=== PATIENT | female | born 1990 | race Caucasian/White ===

== ENCOUNTER 2017-10-27 14:46 | Inpatient (IN) | payer OTHER ==
[2017-10-27] MEDS ORDERED: SODIUM CHLORIDE FLUSH 0.9% 10 ML SYRINGE IVP PRN ×2 (15:08→20:27)
[2017-10-27] MEDS ORDERED: ONDANSETRON 4 MG/2 ML VIAL IVP PRN ×2 (15:08→23:00)
[2017-10-27] MEDS ORDERED: fentaNYL 100 MCG/2 ML VIAL IVP PRN (15:08)
[2017-10-27] MEDS ORDERED: LACTATED RINGERS 1,000 ML IV ONE ×5 (15:18→18:57)
[2017-10-27] MEDS: LACTATED RINGERS 1,000 ML IV SCH ×3 (15:30→23:33)
[2017-10-27 15:40] LABS: BASOPHILS # (AUTO) 0.1 10^3/uL (0.0-0.1); BASOPHILS % (AUTO) 0.7 %; EOSINOPHILS # (AUTO) 0.1 10^3/uL (0.0-0.7); EOSINOPHILS % (AUTO) 0.5 %; HGB - HEMOGLOBIN 11.5 g/dL (12.0-16.0); LYMPHOCYTES % (AUTO) 20.6 %; MEAN CORPUSCULAR HEMOGLOBIN 28.4 pg (27.0-31.0); MEAN CORPUSCULAR HGB CONC 33.8 g/dL (32.0-36.0); MEAN CORPUSCULAR VOLUME 84.1 fL (81.0-99.0); MEAN PLATELET VOLUME 8.1 fL (7.9-10.8); MONOCYTES # (AUTO) 0.7 10^3/uL (0.0-1.0); MONOCYTES % (AUTO) 7.3 %; NEUTROPHILS # (AUTO) 6.9 10^3/uL (1.5-6.6); NEUTROPHILS % (AUTO) 70.9 %; PLT - PLATELET COUNT 296 10^3/uL (130-450); RED BLOOD COUNT 4.04 10^6/uL (4.20-5.40); RED CELL DISTRIBUTION WIDTH 14.3 % (12.0-15.0); WHITE BLOOD COUNT 9.7 x10^3/uL (4.8-10.8)
--- NOTE | 2017-10-27 17:19 | HISTORY & PHYSICAL EXAMINATION ---
DATE OF SERVICE: 10/27/2017 Physician: Jacob Regalado MD DATE OF ADMISSION: 10/27/2017 DIAGNOSIS 1. A 37-week gestation, in labor. 2. Ruptured membranes. 3. Breech presentation confirmed on ultrasound. HISTORY OF PRESENT ILLNESS: Mrs. Yina Vallejo is a 28-year-old , 2, para 1-0-0-1 woman at 37 weeks based on LMP confirmed by ultrasound. She was a known breech presentation and version attempt was planned for this Friday. At roughly 1:30 this afternoon, she experienced a gush of clear fluid and was told to report to [facility]. Upon presentation, she was found to be in the latent phase of labor with ruptured membranes. Cervical exam was 1-2 cm, 50% effaced, -1 station and a posterior presentation. [employer] RECORDS REVIEW: Last menstrual period was 08 February. Early ultrasound dating was consistent. Other than seasonal rhinitis and heartburn, there were no major problems encountered in the . Final EDC was set at 22 October. The patient was taking thyroxine 25 mcg daily for known hypothyroidism. PAST OBSTETRICAL HISTORY: Vaginal delivery of a 9 pound 5 ounce male without difficulty. PAST SURGICAL HISTORY: None. ALLERGIES: NONE. MEDICATIONS 1. vitamins and iron. 2. Levothyroxine. 3. Ranitidine. FAMILY HISTORY: Prior child has autism. SOCIAL HISTORY: A [employer] dependent. Safe household, , some college. A never smoker, drugs or alcohol. PHYSICAL EXAMINATION GENERAL: Well groomed, calm, present. VITAL SIGNS: 113/63, pulse 108, temperature 98.1. HEENT: Supple neck. Dentition in good repair. No thyromegaly. Wears glasses. LUNGS: Clear to auscultation. CARDIOVASCULAR: Regular. No murmur. No gallop. ABDOMEN: No epigastric tenderness. UTERUS: Size is consistent, estimate a 7-1/2 to 8 pound fetus. Contractions periodically moderate. EFM tracing, category 1. EXTERNAL GENITALIA: No lesions. VAGINA: Copious clear, nonfoul fluid. Nitrazine positive. CERVIX: 1-2 cm posterior, 50% effaced, -1 station leaking fluid. EXTREMITIES: Nonedematous. NEUROLOGIC: Grossly intact. LABORATORY: Admission labs pending. ASSESSMENT: This is a term in the latent phase of labor with a known breech presentation. Ultrasound was re-accomplished and confirmed breech with adequate fluid. Given ruptured membranes, she is not a candidate for a version at this time. Last meal was consumed at roughly 1:30, a hot dog. Anticipate regional anesthetic, spinal. The patient has some fears surrounding anesthetic efficiency and pain. PLAN 1. Consent for primary lower segment transverse section due to breech presentation. 2. Antibiotic prophylaxis per protocol. 3. Compression boots. 4. Ybarra catheter. TD: 10/27/2017 18:18 [facility]
[2017-10-27] MEDS ORDERED: KETOROLAC 30 MG/ML VIAL IVP ONE (18:45)
[2017-10-27] MEDS ORDERED: MORPHINE PF 5 MG/10 ML AMP EP ONE (18:45)
[2017-10-27] MEDS ORDERED: OXYTOCIN 10 UNIT/ML VIAL IV ONE (18:45)
[2017-10-27] MEDS ORDERED: ONDANSETRON 4 MG/2 ML VIAL IVP ONE (18:45)
[2017-10-27] MEDS ORDERED: MORPHINE 2 MG/ML CARPUJECT ONE (19:56)
[2017-10-27] MEDS ORDERED: MAGNESIUM HYDROXIDE 2,400 MG/30 ML UDC PO PRN (20:27)
[2017-10-27] MEDS ORDERED: diphenhydrAMINE 25 MG CAPSULE PO PRN (20:27)
[2017-10-27] MEDS ORDERED: WITCH HAZEL/GLYCERIN 1 EACH MED..PAD TOP PRN (20:27)
[2017-10-27] MEDS ORDERED: HYDROCORTISONE/PRAMOXINE 10 GM PR PRN (20:27)
--- NOTE | 2017-10-27 20:35 | OPERATIVE REPORT ---
Operative Report - General Admit Date: 10/27/17 Procedure Date: 10/27/17 Pre-Op Diagnosis: Breech presentation in labor Procedure Performed: Primary lower segment transverse section Post Op Diagnosis: Same as above - Procedure Note Primary Surgeon: Jacob Regalado MD Secondary Surgeon: Angel Faulkner Anesthesia Technique: Spinal Pathology: None IV Fluids (mL): 1,400 Estimated Blood Loss (mL): 500 Urine Output (mL): 250 Complications: None
[2017-10-27] MEDS: oxyCOD/ACETAMIN 5 MG/325 MG TABLET PO PRN (21:26)
[2017-10-27] MEDS: ACETAMINOPHEN 500 MG TABLET PO SCH (21:26)
[2017-10-27] MEDS: DOCUSATE SODIUM 100 MG CAPSULE PO SCH (21:26)
[2017-10-27] MEDS: IBUPROFEN 600 MG TABLET PO SCH (21:27)
--- NOTE | 2017-10-27 21:47 | OPERATIVE REPORT ---
DATE OF SERVICE: 10/27/2017 Physician: Jacob Regalado MD PREOPERATIVE DIAGNOSES: 1. A 37-week gestation. 2. Breech presentation in labor. 3. Ruptured membranes. PROCEDURE PERFORMED: Primary lower segment transverse section; delivery of a living female infant. POSTOPERATIVE DIAGNOSES: 1. LGA . 2. A 37-week gestation. 3. Breech presentation in labor. 4. Ruptured membranes. PRIMARY SURGEON: Jacob Regalado MD, FACOG, FICS FAITH HEALER: Angel Fualkner, certified nurse copy holder, Women's Health nurse practitioner. ESTIMATED BLOOD LOSS: 500. COMPLICATIONS: None. ANESTHESIOLOGIST: Magnolia Gonzalez, certified nurse fiberglass finisher; spinal. ANALYSIS INTERNSHIP: Zhao To MD (bed spring maker). IV FLUIDS: 1400. URINE OUTPUT: 250. FINDINGS: A living female fetus was born from a double footling breech presentation, right sacrum transverse. The weighed 8 pounds 6 ounces and scored Apgars of 6/6. There was no congenital anomalies or trauma noted. There was clear, nonfoul fluid. The cord entanglement was not a factor. Cord configuration was 3-vessel. Placenta was delivered intact without evidence of infection, abruption. Tubes and ovaries appeared to be intact bilaterally and normal follicular activity. TECHNIQUE: Prior to the procedure, informed consent session was done. Reference signed documents. The patient was brought to the operating room, placed in the sitting position. Spinal anesthesia was uneventfully placed and she was moved to the supine. She was prepped and draped in the customary sterile fashion. A Ybarra was placed. Timeout briefing was done per protocol. After confirming anesthesia was dense through level T10, the procedure begun. The abdominal wall was uneventfully opened with a Pfannenstiel incision in layers. The position of the was assessed. A transverse lower segment uterine incision was made with a scalpel and then lengthened with gentle finger traction. The feet were secured, one at a time, and brought through the hysterotomy wound. Next, the breech was brought. Arms and shoulders swept. The head was delivered with the aid of a [place] maneuver. was suctioned. Cord was doubly clamped, transected. was handed to awaiting bed spring maker, Dr. To. A cord blood sample was sent. The uterus was exteriorized. Placenta was removed with the aid of gentle fundal massage. This stemmed blood flow rather quickly. The hysterotomy wound was closed in 2 layers with first an interlock stitch of #1 Vicryl. An imbricating stitch of #1 Vicryl in a cardinal fashion was then accomplished. The peritoneum was closed with a running stitch of 3-0 Vicryl. All operative sites were inspected. The colic gutters and posterior cul-de-sac were washed clean. The uterus was placed back into its normal anatomic position. All operative sites were inspected and found to be secure. The peritoneum was closed with a running stitch of 2-0 chromic. Fascia was closed in 2 parts with running stitches of 0 Vicryl. The subcutaneous tissue was closed with interrupted stitches of 2-0 chromic. Skin was closed with a running stitch of 4-0 Monocryl and dressed with Dermabond. The patient was uneventfully aroused and taken to recovery. All sponge, needle and instrument counts were confirmed as correct. MEDICATIONS PRIOR TO INCISION: 2 grams of Ancef were given. TD: 10/27/2017 22:47
[2017-10-27] MEDS ORDERED: SODIUM CHLORIDE FLUSH 0.9% 10 ML SYRINGE IVP SCH (22:00)
[2017-10-27 22:31] LABS: BILIRUBIN,URINE NEGATIVE (NEGATIVE); GLUCOSE, URINE (UA) NEGATIVE (NEGATIVE); KETONES,URINE (UA) 15 mg/dL (NEGATIVE); LEUKOCYTE ESTERASE, URINE NEGATIVE (NEGATIVE); NITRITE,URINE NEGATIVE (NEGATIVE); OCCULT BLOOD,URINE MODERATE (NEGATIVE); PROTEIN,URINE NEGATIVE (NEGATIVE); UROBILINOGEN,URINE 0.2 (NORMAL) E.U./dL (NORMAL)
[2017-10-27 22:33] LABS: CLARITY,URINE HAZY (CLEAR)
[2017-10-27 22:41] LABS: BACTERIA,URINE None Seen /HPF (None Seen); SQUAMOUS EPITHELIAL CELL,UR NONE SEEN (<= Few)
[2017-10-27] MEDS ORDERED: METOCLOPRAMIDE 10 MG/2 ML VIAL IVP PRN (23:00)
[2017-10-27] MEDS ORDERED: MORPHINE 2 MG/ML CARPUJECT IVP PRN (23:00)
[2017-10-27] MEDS ORDERED: NALBUPHINE 20 MG/ML AMP IVP PRN (23:00)
[2017-10-27] MEDS ORDERED: NALOXONE 0.4 MG/ML VIAL IVP PRN (23:00)
[2017-10-28] MEDS: oxyCOD/ACETAMIN 5 MG/325 MG TABLET PO PRN ×5 (01:16→15:20)
[2017-10-28] MEDS: SODIUM CHLORIDE FLUSH 0.9% 10 ML SYRINGE IVP SCH ×3 (02:06→10:21)
[2017-10-28] MEDS: IBUPROFEN 600 MG TABLET PO SCH ×4 (04:41→21:32)
[2017-10-28] MEDS: ACETAMINOPHEN 500 MG TABLET PO SCH ×2 (05:07→13:15)
[2017-10-28 06:53] LABS: BASOPHILS % (AUTO) 0.5 %; EOSINOPHILS # (AUTO) 0.1 10^3/uL (0.0-0.7); EOSINOPHILS % (AUTO) 0.7 %; HGB - HEMOGLOBIN 9.5 g/dL (12.0-16.0); LYMPHOCYTES # (AUTO) 2.1 10^3/uL (1.5-3.5); LYMPHOCYTES % (AUTO) 21.2 %; MEAN CORPUSCULAR HEMOGLOBIN 28.4 pg (27.0-31.0); MEAN CORPUSCULAR VOLUME 91.5 fL (81.0-99.0); MEAN PLATELET VOLUME 8.6 fL (7.9-10.8); MONOCYTES # (AUTO) 0.7 10^3/uL (0.0-1.0); MONOCYTES % (AUTO) 7.5 %; NEUTROPHILS # (AUTO) 6.9 10^3/uL (1.5-6.6); NEUTROPHILS % (AUTO) 70.1 %; PLT - PLATELET COUNT 233 10^3/uL (130-450); RED BLOOD COUNT 3.36 10^6/uL (4.20-5.40); RED CELL DISTRIBUTION WIDTH 14.7 % (12.0-15.0); WHITE BLOOD COUNT 9.9 x10^3/uL (4.8-10.8)
[2017-10-28] MEDS: LACTATED RINGERS 1,000 ML IV SCH ×2 (07:37→17:14)
[2017-10-28] MEDS: SIMETHICONE CHEW 80 MG TABLET PO SCH ×4 (08:42→20:27)
[2017-10-28] MEDS: DOCUSATE SODIUM 100 MG CAPSULE PO SCH ×2 (08:42→20:27)
--- NOTE | 2017-10-28 08:45 | PROVIDER PROGRESS NOTE ---
Subjective - General Admit Date: 10/27/17 Procedure Date: 10/27/17 Post Op Days: 1 Procedure Performed: Primary lower segment transverse section - Review of Systems Wound/Incisions: positive: Dressing dry and intact, No drainage Drain Type: Ybarra catheter being discontinued today General: positive: No symptoms HEENT: positive: No symptoms Pulmonary: positive: No symptoms Cardiovascular: positive: No symptoms Gastrointestinal: positive: No symptoms Genitourinary: positive: No symptoms, Other (Minimal lochia rubra non-foul observed) Musculoskeletal: positive: No symptoms Skin: positive: Puritis Psychiatric: positive: No symptoms Objective - Patient Data Vital Signs: Vital Signs x48h Temp Pulse Pulse Resp BP Pulse Ox 10/28/17 07:49 98.1 F 84 16 102/65 98 10/28/17 05:00 80 18 106/69 99 10/28/17 01:12 98.4 F 81 18 98/53 L 97 Weight: Weight 10/26/17 10/27/17 10/28/17 23:59 23:59 23:59 Weight (kg) 98.5 kg Intake & Output: Intake and Output Totals x24h 10/26/17 10/27/17 10/28/17 23:59 23:59 23:59 Intake Total 215 3031.667 Output Total 50 750 Balance 165 2281.667 - Lab Results Lab Results: 10/28/17 06:10 Other Lab Results: Lab Results x24hrs 10/28/17 10/27/17 10/27/17 Range/Units 06:10 21:00 15:20 WBC 9.9 9.7 (4.8-10.8) x10^3/uL RBC 3.36 L 4.04 L (4.20-5.40) 10^6/uL Hgb 9.5 L 11.5 L (12.0-16.0) g/dL Hct 30.7 L 34.0 L (37.0-47.0) % MCV 91.5 84.1 (81.0-99.0) fL MCH 28.4 28.4 (27.0-31.0) pg MCHC 31.0 L 33.8 (32.0-36.0) g/dL RDW 14.7 14.3 (12.0-15.0) % Plt Count 233 296 (130-450) 10^3/uL MPV 8.6 8.1 (7.9-10.8) fL Neut # 6.9 H 6.9 H (1.5-6.6) 10^3/uL Lymph # 2.1 2.0 (1.5-3.5) 10^3/uL Oliver # 0.7 0.7 (0.0-1.0) 10^3/uL Eos # 0.1 0.1 (0.0-0.7) 10^3/uL Baso # 0.0 0.1 (0.0-0.1) 10^3/uL Absolute Nucleated RBC 0.01 0.00 x10^3/uL Nucleated RBC % 0.1 0.0 /100WBC Urine Color YELLOW Urine Clarity HAZY (CLEAR) Urine pH 6.0 (5.0-7.5) PH Ur Specific [place] 1.025 (1.002-1.030) Urine Protein NEGATIVE (NEGATIVE) mg/dL Urine Glucose (UA) NEGATIVE (NEGATIVE) mg/dL Urine Ketones 15 H (NEGATIVE) mg/dL Urine Occult Blood MODERATE H (NEGATIVE) Urine Nitrite NEGATIVE (NEGATIVE) Urine Bilirubin NEGATIVE (NEGATIVE) Urine Urobilinogen 0.2 (NORMAL) (NORMAL) E.U./dL Ur Leukocyte Esterase NEGATIVE (NEGATIVE) Urine RBC 11-25 H (0-5) /HPF Urine WBC 0-3 (0-5) /HPF Ur Squamous Epith Cells NONE SEEN (<= Few) Urine Bacteria None Seen (None Seen) /HPF Ur Microscopic Review INDICATED Urine Culture Comments NOT INDICATED - Current Medications Current Medications: Current Medications Generic Name Dose Route Start Last Admin Trade Name Freq PRN Reason Stop Dose Admin Acetaminophen 1,000 mg 10/27/17 21:00 10/28/17 05:07 Tylenol PO 1,000 mg Q8H AG Administration Diphenhydramine HCl 25 mg 10/27/17 20:27 10/28/17 04:42 Benadryl PO 25 mg Q6H PRN Administration ITCHING Docusate Sodium 100 mg 10/27/17 21:00 10/27/17 21:26 Colace 100mg Capsule PO 100 mg BID AG Administration Lactated Ringer's 1,000 mls @ 100 mls/hr 10/27/17 21:00 10/28/17 07:37 Lr IV 100 mls/hr .Q10H AG Administration Ibuprofen 600 mg 10/27/17 21:00 10/28/17 04:41 Motrin PO 600 mg Q6H AG Administration Morphine Sulfate 2 - 4 mg 10/27/17 23:00 10/28/17 05:07 Morphine (Carpuject) IVP 10/28/17 14:00 2 mg Q10M PRN Administration PAIN Oxycodone/Acetaminophen 1 tab 10/27/17 20:27 10/28/17 05:01 Percocet 5 Mg/325 Mg PO 1 tab Q4HR PRN Administration PAIN Sodium Chloride 10 ml 10/27/17 22:00 10/28/17 05:53 Normal Saline Flush 0.9% IVP Not Given Q8HR AG Physical Exam - Physical Exam General: positive: No acute distress HEENT: positive: Moist mucous membranes Neck: positive: Supple w/out meningeal sx Abdomen: positive: Normal Bowel sounds Female : positive: Enlarged uterus (Uterus 18 week size firm nontender), Other (Incision dry and intact) Extremities: positive: Normal ROM, No pedal edema Skin: positive: Warm and dry Neurologic: positive: Alert and Oriented X 3, Normal Sensation, Normal Speech Assessment/Plan - Assessment/Plan Assessment: Patient recovering normally from surgery.Will give the option for a second Percocet for pain control if needed. Plan: Continue supportive care. Discontinue Ybarra and begin to ambulate today.
[2017-10-28] MEDS: oxyCODONE 5 MG TABLET PO PRN ×2 (18:43→21:44)
[2017-10-29] MEDS: oxyCOD/ACETAMIN 5 MG/325 MG TABLET PO PRN ×8 (02:09→14:10)
[2017-10-29] MEDS: IBUPROFEN 600 MG TABLET PO SCH ×5 (03:25→21:07)
[2017-10-29] MEDS: LACTATED RINGERS 1,000 ML IV SCH ×2 (07:28→14:13)
[2017-10-29] MEDS: SODIUM CHLORIDE FLUSH 0.9% 10 ML SYRINGE IVP SCH ×2 (07:28→14:13)
[2017-10-29] MEDS: SIMETHICONE CHEW 80 MG TABLET PO SCH ×4 (09:33→21:07)
[2017-10-29] MEDS: DOCUSATE SODIUM 100 MG CAPSULE PO SCH ×2 (09:33→21:07)
--- NOTE | 2017-10-29 10:55 | PROVIDER PROGRESS NOTE ---
Subjective - General Admit Date: 10/27/17 Procedure Date: 10/27/17 Post Op Days: 2 Procedure Performed: Primary lower segment transverse section - Review of Systems Wound/Incisions: positive: Dressing dry and intact, No drainage Drain Type: Discontinued General: positive: No symptoms, Other (Pain control has been somewhat difficult. She is currently on [id number] Motrin 600 with supplemental Percocet.) HEENT: positive: No symptoms Pulmonary: positive: No symptoms Cardiovascular: positive: No symptoms Gastrointestinal: positive: No symptoms Genitourinary: positive: No symptoms, Other (Minimal lochia rubra non-foul observed) Musculoskeletal: positive: No symptoms Skin: positive: Puritis Psychiatric: positive: No symptoms Objective - Patient Data Vital Signs: Vital Signs x48h Temp Pulse Pulse Resp BP Pulse Ox 10/29/17 08:30 97.9 F 16 L 108 H 16 134/84 H 96 10/29/17 03:31 98 Weight: Weight 10/27/17 10/28/17 10/29/17 23:59 23:59 23:59 Weight (kg) 98.5 kg Intake & Output: Intake and Output Totals x24h 10/27/17 10/28/17 10/29/17 23:59 23:59 23:59 Intake Total 215 4031.667 Output Total 50 2450 500 Balance 165 1581.667 -500 - Lab Results Lab Results: 10/28/17 06:10 - Current Medications Current Medications: Current Medications Generic Name Dose Route Start Last Admin Trade Name Freq PRN Reason Stop Dose Admin Diphenhydramine HCl 25 mg 10/27/17 20:27 10/28/17 04:42 Benadryl PO 25 mg Q6H PRN Administration ITCHING Docusate Sodium 100 mg 10/27/17 21:00 10/29/17 09:33 Colace 100mg Capsule PO 100 mg BID AG Administration Lactated Ringer's 1,000 mls @ 100 mls/hr 10/27/17 21:00 10/29/17 07:28 Lr IV Not Given .Q10H AG Ibuprofen 600 mg 10/27/17 21:00 10/29/17 09:33 Motrin PO 600 mg Q6H AG Administration Oxycodone/Acetaminophen 1 tab 10/27/17 20:27 10/29/17 09:57 Percocet 5 Mg/325 Mg PO 1 tab Q4HR PRN Administration PAIN Oxycodone/Acetaminophen 1 tab 10/28/17 08:41 10/29/17 09:57 Percocet 5 Mg/325 Mg PO 1 tab Q4HR PRN Administration PAIN Simethicone 80 mg 10/28/17 09:00 10/29/17 09:33 Mylicon PO 80 mg 0900,1300,1800,2100 AG Administration Sodium Chloride 10 ml 10/27/17 20:27 10/28/17 10:21 Normal Saline Flush 0.9% IVP 10 ml PRN PRN Administration NEEDED PER PROVIDER ORDERS Sodium Chloride 10 ml 10/27/17 22:00 10/29/17 07:28 Normal Saline Flush 0.9% IVP Not Given Q8HR [facility] Physical Exam - Physical Exam General: positive: No acute distress, Alert HEENT: positive: Moist mucous membranes Neck: positive: Supple w/out meningeal sx Cardiac: positive: Regular Rate Resipratory: positive: Clear to ausultation brenda Abdomen: positive: Normal Bowel sounds, Surgical Scars (Wound to intactWithout seroma or evidence of infection) Female : positive: Enlarged uterus (17 week size nontender uterus), Other ( Minimal non-foul lochia) Extremities: positive: Normal ROM, Non tender Skin: positive: Warm and dry Neurologic: positive: Alert and Oriented X 3, Normal Sensation, Normal Speech PSYCH: positive: Anxious Assessment/Plan - Assessment/Plan Assessment: Patient is recovering as expected from section. There was some issues about pain control yesterday. Hopefully the Current Motrin and Percocet arrangement will control pain today. Plan: Patient requires another day of supportive care and optimization of pain control.
--- NOTE | 2017-10-29 13:14 | DISCHARGE SUMMARY ---
Physician: Jacob Regalado MD DATE OF ADMISSION: 10/27/2017 DATE OF DISCHARGE: 10/30/2017 DIAGNOSES 1. A 37-week gestation, in labor. 2. Ruptured membranes, latent phase labor 3. Breech presentation. 4. LGA fetus. 5. Hypothyroidism. COMPLICATIONS: None. PROCEDURE: Lower segment transverse section. HISTORY: The patient is a 28-year-old , 2, para 1-0-0-1 woman at 37 weeks based on ultrasound. She has known breech presentation. Enversion attempt was planned on Friday. At 1:30 in the afternoon, she experienced a gush of clear fluid with contractions ensuing. She presented for evaluation and was found to be grossly ruptured, 1- 2 cm, 50% effaced, and -1 station. A strip was category 1 with contractions. Ultrasound confirmed breech presentation. Preparations were made for a delivery. Patient had a normal lowers primary lower segment transverse section to yield a living female weighing 8 pounds 6 ounces, scoring Apgars of 9 and 9. Total blood loss was 500 mL and there were no complications. Dr. To, Pediatrics, was a outside sales consultant present. Patient went to the recovery room in good condition. Reference operative report. Postoperatively, she did well, rapidly advancing to full diet and activity. On postop day #1 and #2, pain control needed to be adjusted, upping her Percocet dose to 2 when needed. She breastfed well and required supportive care on postop day #2. On postop day 3, she felt well and was ready for discharge. Preoperative hemoglobin was 11.5, postoperatively was 9.5. She was discharged on supplemental iron as well as her normal vitamins. Prior to discharge, complete wound care, infant care, self-care was reviewed. She has warning sign and callback instructions DISCHARGE MEDICATIONS 1. vitamins with iron. 2. Ferrous sulfate 325 one tab twice a day. 3. Motrin 600 q. 6 hours. 4. Percocet 325/5 one to 2 tabs q. 4 hours p.r.n. breakthrough pain. 5. Colace 250 twice daily. 6. Synthroid 25 mcg every day. TD: 10/29/2017 14:13 [facility]
--- NOTE | 2017-10-29 16:35 | PROVIDER PROGRESS NOTE ---
Subjective - Prog Note Date Prog Note Date: 10/29/17 Prog Note Time: 16:32 - Subjective Pt reports feeling: Worse Subjective: Called to bedside by RN. Patient having sharp pain in RLQ. Pain occurs with standing/ ambulation. None while in bed. No nausea or vomiting. Passing flatus but has not passed stool x 2 days. Normally has twice daily BM. Baby latching well. Light lochia. Urinating without difficulty. Objective - Vital Signs/Intake & Output Reviewed Vital Signs: Yes Vital Signs: Vital Signs x48h Pulse Resp BP Pulse Ox 10/29/17 16:04 87 16 136/82 H 98 Intake & Output: Intake & Output 10/26/17 10/27/17 10/28/17 10/29/17 23:59 23:59 23:59 23:59 Intake Total 215 4031.667 Output Total 50 2450 500 Balance 165 1581.667 -500 - Objective General Appearance: positive: No acute distress ENT: positive: ENT inspection nml Abdomen: positive: Other (Tympanic bowel sounds. Abdomen distended. Incision clean, dry and intact. Dermabond on incision. No peritoneal signs.) Skin: positive: Color nml - Lab Results Fish Bones: 10/28/17 06:10 Assessment/Plan - Problem List (1) delivery delivered Impression: 27 yo S/p primary CD 10/27/2017 for breech, POD #2 Mild ileus Will change pain medications to decrease narcotic use Help the patient have a BM-- Miralax Ambulate
[2017-10-29] MEDS ORDERED: MAGNESIUM CITRATE 296 ML BOTTLE PO PRN (16:39)
[2017-10-29] MEDS: POLYETHYLENE GLYCOL 3350 17 GM PACKET PO PRN (16:49)
[2017-10-29] MEDS: oxyCODONE 5 MG TABLET PO PRN ×2 (18:24→22:13)
[2017-10-29] MEDS: ACETAMINOPHEN 500 MG TABLET PO SCH (18:29)
[2017-10-30] MEDS: oxyCODONE 5 MG TABLET PO PRN ×4 (02:58→20:22)
[2017-10-30] MEDS: ACETAMINOPHEN 500 MG TABLET PO SCH ×3 (02:59→18:26)
[2017-10-30] MEDS: IBUPROFEN 600 MG TABLET PO SCH (03:36)
[2017-10-30] MEDS: POLYETHYLENE GLYCOL 3350 17 GM PACKET PO PRN (08:07)
[2017-10-30] MEDS: SIMETHICONE CHEW 80 MG TABLET PO SCH ×4 (08:08→20:49)
[2017-10-30] MEDS: DOCUSATE SODIUM 100 MG CAPSULE PO SCH ×2 (08:08→20:49)
[2017-10-30] MEDS ORDERED: Dextroamphetamine/Amphetamine [Adderall 10 Mg Tablet] PO SCH (09:00)
[2017-10-30] MEDS: IBUPROFEN 800 MG TABLET PO SCH ×3 (09:34→20:49)
[2017-10-31] MEDS: oxyCODONE 5 MG TABLET PO PRN ×4 (00:47→12:27)
[2017-10-31] MEDS: ACETAMINOPHEN 500 MG TABLET PO SCH ×2 (02:52→10:10)
[2017-10-31] MEDS: IBUPROFEN 800 MG TABLET PO SCH ×2 (02:53→08:28)
[2017-10-31] MEDS: DOCUSATE SODIUM 100 MG CAPSULE PO SCH (08:26)
[2017-10-31] MEDS: POLYETHYLENE GLYCOL 3350 17 GM PACKET PO PRN (08:26)
[2017-10-31] MEDS: SIMETHICONE CHEW 80 MG TABLET PO SCH ×2 (08:26→12:27)
[2017-10-31 08:37] VITALS: BP 119/72
--- NOTE | 2017-10-31 12:34 | Discharge Plan ---
Discharge Plan Disposition: 01 Home, Self Care Condition: Good Diet: Regular Activity Restrictions: Activity as Tolerated Shower Restrictions: No Driving Restrictions: No No Smoking: If you smoke, Please STOP! Call for help.
== END 2017-10-31 12:40 | disposition home or self-care (01) | DRG 766 ==
LOC: WFO 14:46 → FBP 14:47 → WFO 15:07 → FBP 15:08
PROVIDERS: ADMIT Obstetrics & Gynecology; ATTEND Obstetrics & Gynecology
PROC: 10D00Z1 Extraction of Products of Conception, Low, Open Approach (ICD-10-PCS; principal; 2017-10-27 15:30)
DX: O64.8XX0 Obstructed labor due to other malposition and malpresentation, not applicable or unspecified (principal); O99.284 Endocrine, nutritional and metabolic diseases complicating childbirth; E03.9 Hypothyroidism, unspecified; Z3A.37 37 weeks gestation of pregnancy; Z37.0 Single live birth
CPT/HCPCS: 36415; 81001; 81003; 85025; 87086; 99213